=== PATIENT | female | born 1950 | race Two or more races ===

== ENCOUNTER 2018-07-24 09:30 | Inpatient (IN) | payer OTHER ==
[~2018-07-24] VITALS: Ht 157.5 cm; Wt 70.8 kg
[2018-07-24] MEDS ORDERED: LOSART PO (10:28)
[2018-08-01] MEDS ORDERED: LOSARTAN-HCTZ1 EAC1 PO (11:41)
[2018-08-01] MEDS ORDERED: CLONAZEPAM0.5 MG PO (11:42)
== END 2018-08-04 13:37 | disposition home or self-care (01) | DRG 330 ==
LOC: SURH 08-01 09:30 → O/R 08-01 10:49 → SURH 08-01 14:45
PROVIDERS: ADMIT Colon & Rectal Surgery
PROC: 0DJD8ZZ Inspection of Lower Intestinal Tract, Via Natural or Artificial Opening Endoscopic (ICD-10-PCS; 2018-08-01)
PROC: 0DTN4ZZ Resection of Sigmoid Colon, Percutaneous Endoscopic Approach (ICD-10-PCS; principal; 2018-08-01 14:45)
DX: K57.32 Diverticulitis of large intestine without perforation or abscess without bleeding (principal); K92.1 Melena; I10 Essential (primary) hypertension

== ENCOUNTER 2018-09-05 11:06 | Emergency (ER) | payer OTHER ==
[~2018-09-05] VITALS: Ht 154.9 cm; Wt 69.4 kg
[~2018-09-05 11:06] MED LIST: CLONAZEPAM0.5 MG PO; LOSART PO; LOSARTAN-HCTZ1 EAC1 PO
== END 2018-09-05 18:38 | disposition home or self-care (01) ==
LOC: ER 11:06
DX: R10.13 Epigastric pain (principal)

== ENCOUNTER 2019-08-17 06:30 | Day surgery (SDC) | payer OTHER | END 2019-08-17 12:05 | disposition home or self-care (01) | LOC: AMB-ENDOS 06:30 → ADM 08:15 → AMB-ENDOS 08:15 | PROVIDERS: ATTEND Colon & Rectal Surgery | DX: K57.32 Diverticulitis of large intestine without perforation or abscess without bleeding (principal); K64.1 Second degree hemorrhoids ==